=== PATIENT | female | born 2000 | race Two or more races ===

== ENCOUNTER 2022-09-09 10:53 | Inpatient (IN) | payer MEDICAID, OTHER ==
[~2022-09-09] VITALS: Ht 152.4 cm; Wt 85.9 kg
[2022-09-09] MEDS ORDERED: WITCH HAZEL-GLYCERIN PAD TOP PRN (14:00)
[2022-09-09] MEDS ORDERED: DERMOPLAST 60ML BOTTLE TOP PRN (14:00)
[2022-09-09] MEDS ORDERED: PHISODERM TOP SOLN 240ML BTL TOP PRN (14:00)
[2022-09-09 14:18] LABS: Urine Bacteria NONE SEEN /hpf (None Seen); Urine Blood 3+ /uL (Negative); Urine WBC 506 /hpf (0 - 5); Urine WBC Clumps PRESENT /hpf (None Seen)
[2022-09-09 14:27] LABS: Alcohol, Urine < 3.0 mg/dL (0-10); Amphetamine Screen, Urine NEGATIVE (NEGATIVE); Barbiturate Scree,Urine NEGATIVE (NEGATIVE); Benzodiazephine Screen, Urine NEGATIVE (NEGATIVE); Cannabinoid Screen, Urine NEGATIVE (NEGATIVE); Cocaine Screen, Urine NEGATIVE (NEGATIVE); Opiate Scree,Urine NEGATIVE (NEGATIVE); Phencyclidine Screen, Urine NEGATIVE (NEGATIVE)
[2022-09-09 14:50] LABS: Basophils # (auto) 0 10 ^3/uL (0-0.2); Basophils % (auto) 0.2 % (0.0-2.0); Eosinophils # (auto) 0.1 10 ^3/uL (0-0.8); Eosinophils % (auto) 0.7 % (0.0-7.0); Hematocrit 34.3 % (36.0-46.0); Hemoglobin 11.7 g/dL (12.2-16.2); Lymphocytes % (auto) 9.3 % (10.0-50.0); Mean Corpuscular Hemoglobin 28.7 pg (28.0-32.0); Mean Corpuscular Hgb Conc. 34.1 g/dL (32.0-36.0); Mean Corpuscular Volume 84.3 fL (80.0-100.0); Monocytes # (auto) 0.6 10 ^3/uL (0-1.3); Monocytes % (auto) 5.1 % (0.0-12.0); Neutrophils # (auto) 9.4 10 ^3/uL (1.6-8.6); Neutrophils % (auto) 84.7 % (37.0-80.0); Red Blood Cells 4.08 10^6/uL (4.0-5.20); Red Cell Distribution Width 13.7 % (11.8-14.3); White Blood Cell 11.1 10^3/uL (4.4-10.8)
[2022-09-09 15:04] LABS: Albumin 2.8 g/dL (3.4-5.0); Calcium 8.6 mg/dL (8.5-10.1); Potassium 3.5 mmol/L (3.5-5.1)
[2022-09-09 15:05] LABS: INR 0.95 (0.9-1.15); Partial Thromboplastin Time 26.5 sec (24.6-33.4)
[2022-09-09 15:07] LABS: BUN/Creatinine Ratio 14.9
[2022-09-09 15:09] LABS: Bilirubin, Total 0.2 mg/dL (0.2-1.0); Total Protein 7.2 g/dL (6.4-8.2)
[2022-09-09] MEDS: LACTATED RINGER'S 1,000 ML IV SCH ×3 (15:59→19:28)
[2022-09-09] MEDS ORDERED: fentaNYL CITRATE 100 MCG/2 ML VL ONE (16:19)
[2022-09-09] MEDS ORDERED: BUPIVACAINE/DEXTROSE MPF 0.75% 2 ML AMP IT ONE ×2 (16:23→16:31)
[2022-09-09] MEDS ORDERED: SODIUM CHLORIDE 0.9% 1,000 ML IV SCH (16:45)
[2022-09-09] MEDS ORDERED: ONDANSETRON HCL 4 MG/2 ML VIAL IV PRN (16:45)
[2022-09-09] MEDS ORDERED: NALOXONE HCL 0.4 MG/ML VIAL IV PRN (17:15)
[2022-09-09 18:30] VITALS: BP 130/82
[2022-09-09] MEDS: ceFAZolin 1GM/50ML 50 ML IV SCH (19:28)
[2022-09-10] MEDS: ceFAZolin 1GM/50ML 50 ML IV SCH (04:06)
[2022-09-10] MEDS: LACTATED RINGER'S 1,000 ML IV SCH (04:07)
[2022-09-11 05:07] LABS: Rubella Antibodies, IgG 1.63 index (Immune >0.99)
[2022-09-11 07:06] LABS: RPR Non Reactive (Non Reactive)
[2022-09-11] MEDS ORDERED: CEPH-322 PO (19:35)
[2022-09-11] MEDS ORDERED: PREN-96 PO (19:35)
== END 2022-09-10 08:50 | disposition home or self-care (01) | DRG 547 ==
LOC: ER 10:53 → LDRP 11:27
PROVIDERS: ADMIT Obstetrics & Gynecology; ATTEND Obstetrics & Gynecology
PROC: 0UVC7ZZ Restriction of Cervix, Via Natural or Artificial Opening (ICD-10-PCS; principal; 2022-09-09 16:17)
DX: O34.32 Maternal care for cervical incompetence, second trimester (principal); O46.92 Antepartum hemorrhage, unspecified, second trimester; Z3A.21 21 weeks gestation of pregnancy; Z20.822 Contact with and (suspected) exposure to COVID-19
CPT/HCPCS: 36415; 59025; 76805; 80053; 80307; 81001; 81002; 85025; 85610; 85730; 86592; 86703; 86762; 86850; 86900; 86901; 87340; 87426; 94760; 94762; 96360; 96361; 96365; G0378; J0690

== ENCOUNTER 2022-09-11 18:36 | Observation (INO) | payer MEDICAID ==
[~2022-09-11] VITALS: Ht 152.4 cm; Wt 85.7 kg
[2022-09-11] MEDS ORDERED: PREN-96 PO (19:35)
[2022-09-11] MEDS ORDERED: CEPH-322 PO (19:35)
== END 2022-09-11 21:15 | disposition home or self-care (01) ==
LOC: LDRP 18:36
PROVIDERS: ADMIT Obstetrics & Gynecology; ATTEND Obstetrics & Gynecology
DX: O36.8120 Decreased fetal movements, second trimester, not applicable or unspecified (principal); O46.92 Antepartum hemorrhage, unspecified, second trimester; O26.892 Other specified pregnancy related conditions, second trimester; R10.9 Unspecified abdominal pain; Z3A.21 21 weeks gestation of pregnancy
CPT/HCPCS: 59025; 76815; 81002; 94760; G0378

== ENCOUNTER 2024-08-03 11:14 | Emergency (ER) | payer MEDICAID, OTHER ==
[~2024-08-03] VITALS: Ht 149.9 cm; Wt 82.0 kg
[~2024-08-03 11:14] MED LIST: CEPH250C PO; PREN-96 PO
[2024-08-03 12:06] VITALS: BP 143/90; PULSE 73; RESP 16; O2SAT 96
[2024-08-03 13:17] VITALS: TEMP 98.2
[2024-08-03] MEDS: IBUPROFEN 600 MG TAB PO ONE (13:17)
[2024-08-03] MEDS ORDERED: IBUP1TAB5 PO (13:19)
== END 2024-08-03 13:33 | disposition home or self-care (01) ==
LOC: ER 11:14
DX: S93.504A Unspecified sprain of right lesser toe(s), initial encounter (principal); Z79.899 Other long term (current) drug therapy; X58.XXXA Exposure to other specified factors, initial encounter; Y93.02 Activity, running; Y92.89 Other specified places as the place of occurrence of the external cause; Y99.8 Other external cause status
CPT/HCPCS: 73630

== ENCOUNTER 2025-06-07 16:08 | Emergency (ER) | payer MEDICAID ==
[~2025-06-07] VITALS: Ht 152.4 cm; Wt 80.9 kg
[~2025-06-07 16:08] MED LIST changes: +IBUP1TAB5 PO
--- NOTE | 2025-06-07 16:19 | ED.PDOC ---
PUMP STATION OPERATOR HPI Comments 24 y.o female presents to the ED for an initial chief complaint of hematuria x 2 days that was associated with frequency and vaginal/pelvic pain. Patient tried home remedies, such as drinking natural hibiscus and other teas which improved her pain level but states today noticed heavy vaginal bleeding and is unsure if it is her MC that started early (initially has MC every 1st of the month). Patient denies any blood clots, nausea, vomiting, diarrhea, fever, chills. Possible . Time Seen by MD: 16:13 Reviewed Notes: Nurses Notes, Medications, Allergies Allergies: Coded Allergies: NO KNOWN ALLERGIES (Unverified , 09/11/22) Home Meds Active Scripts Ibuprofen Micronized (Ibuprofen) 600 Mg Tab, 600 MG PO Q6HPRN PRN, #20 TAB Prov:RODRIGUEZSUKH JOEL PAC 08/03/24 Reported Medications Cephalexin (KEFLEX CAPSULE) 250 Mg Cp, 500 MG PO HS 09/11/22 Vit W/ Ferrous Fumara ( One Daily) Daily Tab, 1 TAB PO DAILY, #90 TAB 3 Refills 09/11/22 Information Source: Patient Mode of Arrival: Ambulatory Timing: Days (2) Severity: Moderate Bleeding Quality: Bright Red Onset Of Mass/Bleeding: Spontaneous Sexual Activity: Neither Last Consensual [place]: Unknown Control: None Associated Signs and Symptoms: Vaginal Bleeding, Frequency, Urgency Past Medical History PAST MEDICAL HISTORY: Denies Surgical History: Denies all surgeries VISITOR SERVICES ASSOCIATE History: Denies all VISITOR SERVICES ASSOCIATE Hx Family History Family History: Reviewed,noncontributory to illness Social History Smoker: Non-Smoker Alcohol: Denies ETOH Use Drugs: Denies Drug Use Lives In: Home Constitutional: denies: chills, diaphoresis, fatigue, fever, malaise, sweats, weakness, others EENTM: denies: blurred vision, double vision, ear bleeding, ear discharge, ear drainage, ear pain, ear ringing, eye pain, eye redness, hearing loss, mouth pain, mouth swelling, nasal discharge, nose bleeding, nose congestion, nose pain, photophobia, tearing, throat pain, throat swelling, voice changes, others Respiratory: denies: cough, hemoptysis, orthopnea, SOB at rest, shortness of breath, SOB with excertion, stridor, wheezing, others Cardiovascular: denies: chest pain, dizzy spells, diaphoresis, Dyspnea on exertion, edema, irregular heart beat, left arm pain, lightheadedness, palp itations, PND, syncope, others Gastrointestinal: denies: abdomen distended, abdominal pain, blood streaked bowels, constipated, diarrhea, dysphagia, difficulty swallowing, hematemesis, melena, nausea, poor appetite, poor fluid intake, rectal bleeding, rectal pain, vomiting, others Genitourinary: reports: abnormal vagina bleeding, hematuria, pain; denies: burning, dyspareunia, dysuria, flank pain, frequency, incontinence, , vagina discharge, urgency, others Neurological: denies: dizziness, fainting, headache, left sided numbness, left sided weakness, numbness, paresthesia, pre-existing deficit, right sided numbness, right sided weakness, seizure, speech problems, tingling, tremors, weakness, others Musculoskeletal: denies: back pain, gout, joint pain, joint swelling, muscle pain, muscle stiffness, neck pain, others Integumetry: denies: bruises, change in color, change in hair/nails, dryness, laceration, lesions, lumps, rash, wounds, others Allergic/Immunocompromised: denies: Difficulty Healing, Frequent Infections, Hives, Itching, others Hematologic/Lymphatic: denies: anemia, blood clots, easy bleeding, easy bruising, swollen glands, others Endocrine: denies: excessive hunger, excessive sweating, excessive thirst, excessive urination, flushing, intolerance to cold, intolerance to heat, unexplained weight gain, unexplained weight loss, others Psychiatric: denies: anxiety, bipolar disorder, depression, hopeless, panic disorder, schizophrenia, sleepless, suicidal, others Physical Exam General Appearance: Mild Distress HEENT: Normal ENT Inspection, Pharynx Normal, TMs Normal Neck: Full Range of Motion, Non-Tender, Normal, Normal Inspection Respiratory: Chest Non-Tender, Lungs Clear, No Accessory Muscle Use, No Respiratory Distress, Normal Breath Sounds Cardiovascular: No Edema, No JVD, No Murmur, No Gallop, Normal Peripheral Pulses, Regular Rate/Rhythm Breast Exam: Deferred Gastrointestinal: No Organomegaly, No Pulsatile Mass, Normal Bowel Sounds, Soft, Suprapubic, Tenderness Genitalia: Deferred Pelvic: Deferred Rectal: Deferred Extremities: No calf tenderness, Normal capillary refill, Normal inspection, Normal range of motion, Non-tender, No pedal edema Musculoskeletal : Apperance: Normal Neurologic: Alert, acid extractor II-XII nml as Tested, No Motor Deficits, Normal Affect, Normal Mood, No Sensory Deficits Cerebellar Function: Normal Reflexes: Normal Skin: Dry, Normal Color, Warm Lymphatic: No Adenopathy Was a procedure done? Was a procedure done?: No Differential Diagnosis (VISITOR SERVICES ASSOCIATE) Vaginal Bleeding: Blood Loss Anemia, Cervicitis, Menometrorrhagia, Menstrual Bleeding, PID, UTI, Vaginitis X-Ray, Labs, Meds, VS Vital Signs Date Time Temp Pulse Resp B/P (MAP) Pulse Ox O2 Delivery O2 Flow Rate FiO2 06/07/25 16:39 98.0 106 16 143/101 (115) 98 98.0 Lab Test 06/07/25 16:56 06/07/25 16:36 Range/Units Urine Color Light-orange Yellow Urine Clarity Ex.turbid Clear Urine pH 5.5 5.0-9.0 Urine Specific [place] 1.025 1.001-1.035 Urine Protein 1+ H Negative Urine Ketones Trace Negative Urine Blood 3+ H Negative /uL Urine Nitrite Negative Negative Urine Bilirubin Negative Negative Urine Urobilinogen Normal Negative mg/dL Urine Leukocyte Esterase 3+ Negative /uL Urine RBC 589 0 - 4 /hpf Urine WBC Clumps Present None Seen /hpf Urine Microscopic WBC 2706 H 0-5 /HPF Urine Squamous Epithelial Cells Few <5 /hpf Urine Bacteria None seen None Seen /hpf Urine Glucose Normal Normal mg/dL White Blood Count 16.9 H 4.4-10.8 10^3/uL Red Blood Count 4.65 4.0-5.20 10^6/uL Hemoglobin 11.1 L 12.2-16.2 g/dL Hematocrit 34.2 L 36.0-46.0 % Mean Corpuscular Volume 73.5 L 80.0-100.0 fL Mean Corpuscular Hemoglobin 23.8 L 28.0-32.0 pg Mean Corpuscular Hemoglobin Concent 32.4 32.0-36.0 g/dL Red Cell Distribution Width 15.3 H 11.8-14.3 % Platelet Count 980 *H 140-450 10^3/uL Mean Platelet Volume 7.0 6.9-10.8 fL Neutrophils (%) (Auto) 86.5 H 37.0-80.0 % Lymphocytes (%) (Auto) 9.0 L 10.0-50.0 % Monocytes (%) (Auto) 3.0 0.0-12.0 % Eosinophils (%) (Auto) 1.0 0.0-7.0 % Basophils (%) (Auto) 0.5 0.0-2.0 % Neutrophils # (Auto) 14.6 H 1.6-8.6 10 ^3/uL Lymphocytes # (Auto) 1.5 0.4-5.4 10 ^3/uL Monocytes # (Auto) 0.5 0-1.3 10 ^3/uL Eosinophils # (Auto) 0.2 0-0.8 10 ^3/uL Basophils # (Auto) 0.1 0-0.2 10 ^3/uL Nucleated Red Blood Cells 0.0 % Platelet Estimate Markedly increased Beta HCG, Quantitative 0.5 L 1.5-4.2 mIU/mL The urine test is positive for UTI The CBC shows an elevated white blood cell count of 16.9 The rest of the CBC is within normal limits At this time, the patient is given Cipro here in the emergency department's The patient is also given a prescription of Cipro Time of 1ST Reevaluation: 16:19 Reevaluation 1ST: Unchanged Patient Education/Counseling: Diagnosis, Treatment, Prognosis, Need For Follow Up Family Education/Counseling: No Family Present Departure 1 Departure Time of Disposition: 19:26 Impression: Primary Impression: UTI (urinary tract infection) Qualified Codes: N30.01 - Acute cystitis with hematuria Disposition: HOME / SELF CARE / HOMELESS Condition: Good Discharged With: Self Critical Care Note Critical Care Time?: No Stability Stability form required: No I personally scribed for JOVANNY CATALAN MD ([email or web address]) on 06/07/25 at 16:19. Electronically submitted by Nella Soler ([facility]). JOVANNY CATALAN MD Jun 07, 2025 16:19
[2025-06-07 16:54] LABS: Hematocrit 34.2 % (36.0-46.0); Hemoglobin 11.1 g/dL (12.2-16.2); Mean Corpuscular Hemoglobin 23.8 pg (28.0-32.0); Mean Corpuscular Volume 73.5 fL (80.0-100.0); Nucleated Red Blood Cells % 0.0 %
[2025-06-07 17:05] LABS: Urine Protein, UAD 1+ (Negative); Urine WBC Clumps PRESENT /hpf (None Seen)
--- NOTE | 2025-06-07 18:15 | DVH ---
TRANSABDOMINAL PELVIC ULTRASOUND CLINICAL HISTORY: Heavy bleeding and pain TECHNIQUE: Multiple grayscale ultrasound images were obtained of the pelvis via transabdominal appro ach. Limited color Doppler and spectral Doppler acquisitions were also obtained. COMPARISON: None FINDINGS: Uterus: 11.8 x 5.2 x 3.5 cm. The uterine contour is smooth. No myometrial masses are seen. Endometrium: 0.2 cm. No endometrial mass is seen. Right adnexa: right ovary 3.3 x 3.0 x 2.1 cm. Normal arterial blood flow in the ovary. No right adnex al mass seen. Left adnexa: left ovary 3.2 x 2.4 x 1.8 cm. Normal arterial blood flow in the ovary. No left adnexal mass seen. Other: None IMPRESSION: Unremarkable transabdominal pelvic ultrasound.
[2025-06-07] MEDS ORDERED: CIPR-173 PO (19:28)
[2025-06-07 20:15] VITALS: BP 138/98; PULSE 90; RESP 16; TEMP 97.5; O2SAT 100
== END 2025-06-07 20:17 | disposition home or self-care (01) ==
LOC: ER 16:08
DX: N39.0 Urinary tract infection, site not specified (principal)
CPT/HCPCS: 36415; 76856; 81001; 84702; 85025